=== PATIENT | female | born 1935 | race Caucasian/White ===

== ENCOUNTER 2016-03-26 12:53 | Outpatient (CLI) | payer OTHER, BC ==
--- NOTE | 2016-03-26 13:54 | DIAGNOSTIC IMAGING REPORT ---
PROCEDURE: DEXA BONE DENSITY STUDY CLINICAL INDICATION: SCREENING,MENOPAUSAL COMPARISON: None. FINDINGS: LUMBAR SPINE: Bone mineral density 0.893, T-score -1.4, osteopenia LEFT HIP: Bone mineral density 0.712, T-score -1.9, osteopenia LEFT FEMORAL NECK: Bone mineral density 0.547, T-score -2.7, osteoporosis. (T score greater or equal to -1.0 to: NORMAL) (T score from -1.1 to -2.4: OSTEOPENIA) (T score ess than or equal to -2.5: OSTEOPOROSIS) IMPRESSION: 1. Lumbar spine osteopenia 2. Left hip osteoporosis
== END 2016-03-26 23:00 ==
LOC: XR SRH 12:53
DX: Z78.0 Asymptomatic menopausal state (principal); M85.88 Other specified disorders of bone density and structure, other site; M81.8 Other osteoporosis without current pathological fracture